=== PATIENT | female | born 1975 | race Caucasian/White ===

== ENCOUNTER 2021-10-24 15:48 | Emergency (ER) | payer MEDICARE, MEDICAID ==
[~2021-10-24] VITALS: Ht 167.6 cm; Wt 84.1 kg
[2021-10-24 15:54] VITALS: BP 98/56
[2021-10-24] MEDS ORDERED: naproxen 500mg tablet PO ONE (16:25)
== END 2021-10-24 16:59 | disposition home or self-care (01) ==
LOC: ER 15:49
DX: S93.402A Sprain of unspecified ligament of left ankle, initial encounter (principal); F17.200 Nicotine dependence, unspecified, uncomplicated; Z59.00 Homelessness unspecified; X50.1XXA Overexertion from prolonged static or awkward postures, initial encounter; Y93.89 Activity, other specified; Y92.89 Other specified places as the place of occurrence of the external cause; Y99.8 Other external cause status
CPT/HCPCS: 73610; 99283; A6449

== ENCOUNTER 2021-12-03 11:15 | Emergency (ER) | payer MEDICARE, MEDICAID ==
[~2021-12-03] VITALS: Ht 167.6 cm; Wt 79.5 kg
[2021-12-03 11:59] VITALS: BP 137/89
[2021-12-03] MEDS ORDERED: HYDROcodone/acetaminophen 10/325mg tab PO ONE (13:35)
[2021-12-03] MEDS ORDERED: HYDR-3965 PO (13:36)
== END 2021-12-03 13:59 | disposition home or self-care (01) ==
LOC: ER 11:16
DX: M43.6 Torticollis (principal); Z91.018 Allergy to other foods; Z91.011 Allergy to milk products; Z79.899 Other long term (current) drug therapy
CPT/HCPCS: 99284